=== PATIENT | female | born 1990 | race Caucasian/White ===

== ENCOUNTER 2017-12-13 11:01 | Outpatient (CLI) | payer OTHER ==
[2017-12-13 12:38] LABS: RHEUMATOID FACTOR NEGATIVE (Negative)
== END 2017-12-13 11:02 | disposition home or self-care (01) ==
LOC: LAB 11:01
PROVIDERS: ATTEND Orthopaedic Surgery
DX: M25.461 Effusion, right knee (principal); M25.561 Pain in right knee
CPT/HCPCS: 36415; 81599; 86430; 89051; 89060

== ENCOUNTER 2017-12-13 15:54 | Outpatient (CLI) | payer OTHER ==
[2017-12-13 15:32] LABS: BF COLOR YELLOW; BF SOURCE SYNOVIAL; CC,BF RBC 2512 /mm^3
[2017-12-13 16:03] LABS: LYMPHOCYTES %,BODY FLUID 60; MONOCYTES %,BODY FLUID 23 %
== END 2017-12-13 15:55 | disposition home or self-care (01) ==
LOC: LAB.R 15:54
PROVIDERS: ATTEND Orthopaedic Surgery
DX: M25.461 Effusion, right knee (principal); M25.561 Pain in right knee
CPT/HCPCS: 81599; 89051; 89060

== ENCOUNTER 2017-12-22 09:00 | Outpatient (CLI) | payer BC ==
[2017-12-26 18:56] LABS: ANA SCREEN POSITIVE (NEGATIVE)
== END 2017-12-22 09:01 | disposition home or self-care (01) ==
LOC: LAB 09:00
PROVIDERS: ATTEND Orthopaedic Surgery
DX: M25.461 Effusion, right knee (principal); N89.8 Other specified noninflammatory disorders of vagina
CPT/HCPCS: 36415; 85651; 86038; 86140; 86225; 87480; 87510; 87660

== ENCOUNTER 2017-12-22 10:24 | Outpatient (CLI) | payer BC | END 2017-12-22 10:25 | disposition home or self-care (01) | LOC: LAB.R 10:24 | PROVIDERS: ATTEND Nurse Practitioner Obstetrics & Gynecology | DX: N89.8 Other specified noninflammatory disorders of vagina (principal) | CPT/HCPCS: 87480; 87510; 87660 ==

== ENCOUNTER 2018-01-02 12:21 | Outpatient (CLI) | payer BC ==
--- NOTE | 2018-01-02 18:06 | MRI Report ---
EXAM: RIGHT KNEE MRI WITHOUT CONTRAST EXAM DATE: 01/02/2018 01:20 PM. CLINICAL HISTORY: Right knee pain for 2 years. Right knee swelling and joint effusion. COMPARISON: None. TECHNIQUE: Multiplanar, multisequence T1-weighted and fluid-sensitive sequences of the knee without c ontrast. Other: None. FINDINGS: Bones: Mild subcortical marrow edema at the posteromedial aspect of the medial tibial plateau. No acu te fracture or bone lesions. Slight lateral subluxation of the patella by approximately 5 mm. Articular Cartilage: Unremarkable. Medial Meniscus: The medial meniscus is intact. Lateral Meniscus: The lateral meniscus is intact. Cruciate Ligaments: The anterior and posterior cruciate ligaments are intact. Collateral Ligaments: The medial collateral and lateral collateral ligamentous structures are intact. Tendons: The quadriceps, patellar, semimembranosus, and popliteus tendons are unremarkable. Musculature: No edema or fatty atrophy. Other: Large joint effusion. [id number] synovial thickening and irregularity. No popliteal cyst . Small amount of fluid at the semimembranosus-tibial collateral ligament bursa. No loose bodies. The medial and lateral retinacula are intact. The subcutaneous tissues and fat pads are unremarkable. IMPRESSION: 1. Large joint effusion. [id number] synovial thickening and irregularity suggestive of synoviti s. 2. Small amount of fluid at the semimembranosus-tibial collateral ligament bursa. 3. No ligament or meniscal injury. 4. Mild subcortical marrow edema at the posteromedial aspect of the medial tibial plateau which may b e reactive or posttraumatic in etiology. 5. Slight lateral subluxation of the patella by approximately 5 mm. [facility] MUSCULOSKELETAL RADIOLOGY SECTION Referring Provider Line: [phone] SITE ID: [id number]
== END 2018-01-02 12:22 | disposition home or self-care (01) ==
LOC: DI 12:21
PROVIDERS: ATTEND Orthopaedic Surgery
DX: M25.461 Effusion, right knee (principal); S83.011A Lateral subluxation of right patella, initial encounter

== ENCOUNTER 2018-01-26 14:15 | Outpatient (CLI) | payer BC ==
--- NOTE | 2018-01-26 15:29 | XRAY Report ---
BILATERAL KNEES TWO VIEWS EACH: 01/26/2018 HISTORY: Right knee pain and swelling. COMPARISON: 01/02/2018 MRI. FINDINGS: Two standing views of each knee are performed. There is no evidence of fracture, joint space narrowing, malalignment, or soft tissue calcification. There is a small suprapatellar effusion on the right. No effusion on the left. IMPRESSION: SMALL RIGHT SUPRAPATELLAR EFFUSION. OTHERWISE, NEGATIVE BILATERAL KNEES. TD: 01/26/2018 15:29 [facility]
== END 2018-01-26 14:16 | disposition home or self-care (01) ==
LOC: DI 14:15
PROVIDERS: ATTEND Internal Medicine Rheumatology
DX: M25.561 Pain in right knee (principal); M25.461 Effusion, right knee
CPT/HCPCS: 73565

== ENCOUNTER 2018-03-07 08:00 | Outpatient (CLI) | payer BC ==
[2018-03-07 19:19] LABS: BASOPHILS % (AUTO) 0.5 %; EOSINOPHILS % (AUTO) 0.3 %; HGB - HEMOGLOBIN 12.5 g/dL (12.0-16.0); LYMPHOCYTES % (AUTO) 23.3 %; MEAN CORPUSCULAR HEMOGLOBIN 25.5 pg (27.0-31.0); MEAN CORPUSCULAR HGB CONC 32.1 g/dL (32.0-36.0); MEAN CORPUSCULAR VOLUME 79.4 fL (81.0-99.0); MEAN PLATELET VOLUME 11.2 fL (7.9-10.8); MONOCYTES # (AUTO) 0.5 10^3/uL (0.0-1.0); MONOCYTES % (AUTO) 5.9 %; NEUTROPHILS # (AUTO) 6.2 10^3/uL (1.5-6.6); PLT - PLATELET COUNT 232 10^3/uL (130-450); RED CELL DISTRIBUTION WIDTH 16.2 % (12.0-15.0); WHITE BLOOD COUNT 8.8 x10^3/uL (4.8-10.8)
[2018-03-07 19:26] LABS: ALBUMIN 4.3 g/dL (3.2-5.5); ALBUMIN/GLOBULIN RATIO 1.6 (1.0-2.2); BILIRUBIN,TOTAL 0.5 mg/dL (0.2-1.0); CALCIUM 9.2 mg/dL (8.5-10.3); CREATININE 0.7 mg/dL (0.4-1.0)
== END 2018-03-07 08:01 | disposition home or self-care (01) ==
LOC: LAB.WCP 08:00
PROVIDERS: ATTEND Internal Medicine Rheumatology
DX: M25.561 Pain in right knee (principal)
CPT/HCPCS: 36415; 80053; 85025; 85651

== ENCOUNTER 2020-01-09 14:00 | Outpatient (CLI) | payer OTHER | END 2020-01-09 23:59 | disposition home or self-care (01) | LOC: LAB.R 14:00 | PROVIDERS: ATTEND Physician Assistant Medical | DX: R31.9 Hematuria, unspecified (principal) | CPT/HCPCS: 87077; 87086; 87181 ==

== ENCOUNTER 2020-01-09 14:58 | Outpatient (CLI) | payer OTHER ==
--- NOTE | 2020-01-09 15:45 | CT Report ---
Reason: HEMATURIA Procedure Date: 01/09/2020 Accession Number: [id number] / [id number] Procedure: CT - Abdomen/Pelvis WO CPT Code: Final Report FULL RESULT: EXAM: CT ABDOMEN AND PELVIS (CT KUB) EXAM DATE: 01/09/2020 03:18 PM. CLINICAL HISTORY: HEMATURIA. Right lower quadrant pain. COMPARISONS: None. TECHNIQUE: Routine axial helical CT imaging was performed through the abdomen and pelvis without IV contrast. Reconstructions: Coronal and sagittal. In accordance with CT protocol optimization, one or more of the following dose reduction techniques were utilized for this exam: automated exposure control, adjustment of mA and/or KV based on patient size, or use of iterative reconstructive technique. FINDINGS: Evaluation of solid abdominal organs is limited without intravenous contrast. Lung Bases: Unremarkable. Right Kidney/Ureter: No stone, hydronephrosis or hydroureter. No perinephric fat stranding. Left Kidney/Ureter: No stone, hydronephrosis or hydroureter. No perinephric fat stranding. Other Solid Organs: Noncontrast images of the solid organs are grossly unremarkable. Gallbladder/Bile Ducts: Unremarkable. Peritoneal Cavity: No free fluid, free air or luis m adenopathy. No evidence of a bowel obstruction. Normal appendix. Pelvic Organs: No bladder stones or wall thickening. Noncontrast images of the uterus and adnexa are unremarkable. Vasculature: Unremarkable. Other: None. IMPRESSION: No urinary tract stones or obstruction. Normal appendix. [facility] The call report notification system was initiated by Dr. Maykel Marrero at 03:43 PM on 01/09/2020.
== END 2020-01-09 14:59 | disposition home or self-care (01) ==
LOC: DI 14:58
PROVIDERS: ATTEND Physician Assistant Medical
DX: R31.9 Hematuria, unspecified (principal)
CPT/HCPCS: 74176; 87077; 87086; 87181

== ENCOUNTER 2020-11-05 07:02 | Outpatient (CLI) | payer BC ==
--- NOTE | 2020-11-05 11:48 | Ultrasound Report ---
PROCEDURE: Pelvic w/Transvaginal INDICATIONS: IRREGULAR MENSES TECHNIQUE: Real-time scanning was performed of the pelvic organs, with image documentation. Additional endovagi nal scanning was necessary due to incomplete visualization of the adnexal and endometrial structures by transabdominal scanning. COMPARISON: None. FINDINGS: Transabdominal scanning: Limited scanning through the kidneys shows no hydronephrosis. No pathologi c free abdominal or pelvic fluid. Endovaginal scanning: Uterus: Uterus is at the upper limits of normal in size at 9.7 x 5.2 x 5.6 cm. Uterine echotexture i s heterogeneous. There is a midline, posterior uterine intramural fibroid measuring 0.8 x 0.8 x 1.1 c m. The endometrium measures 13 mm in combined thickness. There is mild heterogeneity of the endometr ium with a few endometrial cysts measuring less than 3 mm in size near the lower uterine segment. No endometrial mass or suspicious vascularity. Ovaries: Right ovary measures 2.3 x 3.0 x 1.7 cm with ovarian volume of 6.1 mL. Left ovary measures 3.6 x 2.7 x 2.9 cm with ovarian volume of 14.5 mL. IMPRESSION: 1. Heterogeneous, borderline enlarged uterus with small 1.1 cm posterior midline intramural uterine f ibroid. Endometrium appears within normal limits. 2. Normal sonographic appearance of the bilateral ovaries. Reviewed by: Albino Fishman MD on 11/05/2020 10:46 AM [facility] Approved by: Albino Fishman MD on 11/05/2020 10:46 AM [facility] Station ID: [id number]
== END 2020-11-05 07:03 | disposition home or self-care (01) ==
LOC: DI 07:02
PROVIDERS: ATTEND Obstetrics & Gynecology
DX: D25.1 Intramural leiomyoma of uterus (principal)